=== PATIENT | female | born 2000 | race Asian ===

== ENCOUNTER 2022-09-06 14:06 | Emergency (ER) | payer BC, OTHER ==
[2022-09-06 14:28] LABS: Bilirubin Neg (Negative); Blood, Urine 10 (Negative); Clarity Sl. Cloudy (Clear); Glucose, Urine (Dipstick) Normal (Negative); Ketone, Urine Negative (Negative); Leukocyte 25 (Negative); Nitrite Negative (Negative); Protein, Urine (Dipstick) Negative (Neg-Trace); Urobilinogen Normal mg/dL (Less than 2)
[2022-09-06 14:41] LABS: RBC/HPF 0-3 HPF (0-3)
[2022-09-06 14:42] LABS: Bacteria/HPF 2+ HPF (None Seen); Mucous/LPF 1+ LPF (<2+)
[2022-09-06 14:43] LABS: ALT (SGPT) 14 U/L (8-55); AST (SGOT) 20 U/L (5-34); Albumin 3.8 g/dL (3.5-5.0); Alkaline Phosphatase 55 U/L (40-110); Anion Gap 12 mmol/L (10-20); BUN (Urea Nitrogen) 12 mg/dL (7.0-18.7); Bilirubin, Total 0.8 mg/dL (0.2-1.2); Calc. Creatinine Clearance 0 mL/min (70-130); Carbon Dioxide 24 mmol/L (22-29); Chloride 106 mmol/L (98-107); Estimated GFR 128; Globulin 2.9 g/dL (2.4-3.5); Glucose 110 mg/dL (70-105); Lipase 20 U/L (8-78); Potassium 3.9 mmol/L (3.5-5.1); Protein, Total 6.7 g/dL (6.0-8.3); Sodium 138 mmol/L (136-145)
[2022-09-06 14:46] LABS: #Eosinphils 0.1 10x3/uL (0.0-0.5); #Monocytes 0.6 10x3/uL (0.0-1.1); #Neutrophils 9.3 10x3/uL (1.5-8.4); %Basophils 0.2 % (0.0-2.0); %Lymphocytes 16.5 % (18.0-47.0); %Monocytes 4.5 % (0.0-10.0); %Neutrophils 76.6 % (40.0-75.0); Hemoglobin 8.6 g/dL (12.0-15.5); Mean Corpuscular HGB CONC 32.6 g/dL (32.0-36.0); Mean Corpuscular Hemoglobin 22.5 pg (27.0-33.0); Mean Corpuscular Volume 69.1 fl (81.6-98.3); Mean Platelet Volume 11.5 fl (7.4-10.4); Platelet Count 240 10x3/uL (150-450); RBC Distribution Width 18.6 % (11.5-14.5); Red Blood Cell (RBC) Count 3.82 10x6/uL (3.90-5.03); White Blood Cell (WBC) Count 12.1 10x3/uL (3.5-10.5)
[2022-09-06 15:50] LABS: Anisocytosis MODERATE=16-30 cells (100X) (0-5/hpf); Hypochromia SLIGHT = 6-15 cells (100X) (0-5/hpf); Microcytosis MODERATE=15-30 cells (100X) (0-5/hpf); Polychromasia SLIGHT = 2-3 cells (100X) (0-2/hpf)
[2022-09-06 15:52] LABS: Large Platelets SLIGHT; Ovalocytes SLIGHT = 2-5 cells (100X) (0-1/hpf); Platelet Morphology Comment Appears Adequate
[2022-09-06] MEDS ORDERED: Metoclopramide HCl 10 MG/2 ML VIAL ONE (17:30)
[2022-09-06 17:32] LABS: SARS-CoV-2 NAA Rapid Test Not Detected (NotDetected)
== END 2022-09-06 18:25 | disposition home or self-care (01) ==
LOC: CSHERS 14:06
DX: O26.892 Other specified pregnancy related conditions, second trimester (principal); R10.30 Lower abdominal pain, unspecified; O21.8 Other vomiting complicating pregnancy; O99.012 Anemia complicating pregnancy, second trimester; D64.9 Anemia, unspecified; Z3A.18 18 weeks gestation of pregnancy; Z20.822 Contact with and (suspected) exposure to COVID-19
CPT/HCPCS: 36415; 76856; 80053; 81003; 81015; 83690; 85025; 86900; 86901; 96374; J2765

== ENCOUNTER 2022-10-27 15:27 | Outpatient (CLI) | payer BC, OTHER | END 2022-10-27 15:28 | disposition home or self-care (01) | LOC: CSHULT 15:27 | PROVIDERS: ATTEND Advanced Practice Midwife | DX: Z34.92 Encounter for supervision of normal pregnancy, unspecified, second trimester (principal); Z3A.26 26 weeks gestation of pregnancy | CPT/HCPCS: 76805 ==

== ENCOUNTER 2023-01-28 00:02 | Inpatient (IN) | payer BC, OTHER ==
[2023-01-28 00:30] VITALS: BMI 43.4
[2023-01-28 00:56] LABS: Fetal Membranes Rupture RUPTURE DETECTED (No Rupture)
[2023-01-28] MEDS ORDERED: NS w/ Oxytocin 30 units 500 ML IV SCH (02:15)
[2023-01-28] MEDS ORDERED: HYDROcodone/Acetaminophen 5/325 mg Tablet PO PRN ×2 (02:15)
[2023-01-28] MEDS ORDERED: Ibuprofen 800 MG TAB PO PRN (02:15)
[2023-01-28] MEDS ORDERED: Lidocaine 1% (PF) 30 ML VIAL SC PRN (02:15)
[2023-01-28] MEDS ORDERED: Butorphanol Tartrate 1 MG/ML VIAL SLOW IVP PRN (02:15)
[2023-01-28] MEDS ORDERED: Lactated Ringer's 1,000 ML IV SCH (02:15)
[2023-01-28] MEDS ORDERED: Zolpidem Tartrate 5 MG TAB PO PRN (02:15)
[2023-01-28] MEDS ORDERED: Acetaminophen 500 MG TAB PO PRN (02:15)
[2023-01-28] MEDS ORDERED: Misoprostol 200 MCG TAB RC PRN (02:15)
[2023-01-28] MEDS ORDERED: Ondansetron PF 4 MG/2 ML Vial IVP PRN ×3 (02:15→19:55)
[2023-01-28] MEDS ORDERED: NS w/ Oxytocin 30 units 500 ML IVPB SCH (02:15)
[2023-01-28] MEDS ORDERED: hydrALAZINE 20 MG/ML VIAL SLOW IVP PRN (02:15)
[2023-01-28] MEDS ORDERED: Promethazine HCl 25 MG/ML VIAL IM PRN ×2 (02:15→09:15)
[2023-01-28] MEDS ORDERED: Diphenoxylate HCl/Atropine Tablet PO PRN ×2 (02:15)
[2023-01-28] MEDS ORDERED: Methylergonovine 0.2 MG/ML VIAL IM PRN (02:15)
[2023-01-28] MEDS ORDERED: Fleet Enema 133 ML BOT PR ONE (02:15)
[2023-01-28] MEDS ORDERED: Penicillin G Potassium 5 MILL.UNITS in Sodium Chloride 0.9% 100 ML IVPB SCH (02:15)
[2023-01-28] MEDS ORDERED: Carboprost 250 MCG/ML AMP IM PRN (02:15)
[2023-01-28 03:20] LABS: Mean Corpuscular HGB CONC 31.3 g/dL (32.0-36.0); Mean Corpuscular Hemoglobin 23.3 pg (27.0-33.0); Mean Corpuscular Volume 74.4 fl (81.6-98.3); Mean Platelet Volume 12.5 fl (7.4-10.4); Platelet Count 249 10x3/uL (150-450); RBC Distribution Width 16.4 % (11.5-14.5); Red Blood Cell (RBC) Count 3.87 10x6/uL (3.90-5.03); White Blood Cell (WBC) Count 15.4 10x3/uL (3.5-10.5)
[2023-01-28 03:53] LABS: HBSAg Index 0.13 S/CO (0-0.99); Hep B Surf Ag - L&D Non-Reactive S/CO (NonReactive); Syphilis Antibody Nonreactive (Nonreactive); Syphilis Antibody Index 0.06 S/CO (<1.00 Non-Reactive)
[2023-01-28] MEDS: Penicillin G 2.5 MILL.units 2.5 MILL.UNITS in Premix Bag 1 BAG IVPB SCH ×4 (07:23→20:06)
[2023-01-28] MEDS ORDERED: Bupivacaine/Epinephrine 0.25% 30 ML VIAL ONE (08:00)
[2023-01-28] MEDS ORDERED: Fentanyl 2 mcg/Bup 0.1% Cadd 100 ML ONE (08:23)
[2023-01-28] MEDS ORDERED: Docusate 100 MG CAP PO SCH (09:00)
[2023-01-28] MEDS ORDERED: ePHEDrine Sulfate 50 MG/10 ML VIAL SLOW IVP PRN (09:15)
[2023-01-28] MEDS ORDERED: Communication Order-Pharmacy FS SCH (09:15)
[2023-01-28] MEDS ORDERED: Fentanyl 2 mcg/Bupivacaine 0.1% Cassette 100 ML EPIDURAL SCH (09:15)
[2023-01-28] MEDS ORDERED: Naloxone HCl 0.4 mg/ml Vial IVP PRN ×2 (09:15)
[2023-01-28] MEDS ORDERED: Moisturizing Cream (Eucerin) 113 GM JAR TOP PRN (09:15)
[2023-01-28] MEDS ORDERED: diphenhydrAMINE 50 MG/ML VIAL IVP PRN (09:15)
[2023-01-28] MEDS ORDERED: Acetaminophen 325 MG TAB PO PRN (09:15)
[2023-01-28] MEDS ORDERED: Lactated Ringer's 500 ML IV PRN (09:15)
[2023-01-28] MEDS ORDERED: Fentanyl 100 MCG/2 ML VIAL ONE ×3 (16:33→23:59)
[2023-01-28] MEDS: Ampicillin 2 GM in Sodium Chloride 0.9% 100 ML IVPB SCH (22:59)
[2023-01-28] MEDS ORDERED: CEFAZOLIN 2 GM VIAL ONE (23:55)
[2023-01-28] MEDS ORDERED: Morphine PF 10 MG/10 ML VIAL ONE (23:59)
[2023-01-29] MEDS ORDERED: Ketorolac Tromethamine 30 MG/ML VIAL ONE
[2023-01-29] MEDS ORDERED: Phenylephrine 40 MG/NS 250 ML 250 ML ONE
[2023-01-29] MEDS ORDERED: Lidocaine 2% MPF 10 ML AMP (For Epidural Use) ONE
[2023-01-29] MEDS ORDERED: Oxytocin 10 UNITS/ML VIAL ONE ×2 (00:12→00:44)
[2023-01-29] MEDS ORDERED: Metoclopramide HCl 10 MG/2 ML VIAL ONE (00:12)
[2023-01-29] MEDS ORDERED: Dexamethasone 4 mg/ml Vial ONE (00:12)
[2023-01-29] MEDS ORDERED: Famotidine/PF 20 mg/2ml Vial ONE (00:13)
[2023-01-29] MEDS ORDERED: Tranexamic Acid 1,000 MG/10 ML VIAL ONE (00:28)
[2023-01-29] MEDS ORDERED: diphenhydrAMINE 50 MG/ML VIAL IVP PRN (01:16)
[2023-01-29] MEDS ORDERED: Meperidine HCl/PF 25 MG/ML VIAL SLOW IVP PRN (01:16)
[2023-01-29] MEDS ORDERED: Moisturizing Cream (Eucerin) 113 GM JAR TOP PRN (01:16)
[2023-01-29] MEDS ORDERED: Ketorolac Tromethamine 30 MG/ML VIAL IVP PRN (01:16)
[2023-01-29] MEDS ORDERED: Promethazine HCl 25 MG/ML VIAL IM PRN ×2 (01:16→04:18)
[2023-01-29] MEDS ORDERED: Naloxone HCl 0.4 mg/ml Vial IV PRN (01:16)
[2023-01-29] MEDS ORDERED: Naloxone HCl 0.4 mg/ml Vial IVP PRN ×2 (01:16)
[2023-01-29] MEDS ORDERED: Fentanyl 100 MCG/2 ML VIAL SLOW IVP PRN (01:16)
[2023-01-29] MEDS ORDERED: Promethazine HCl 25 MG SUPP PR PRN (01:16)
[2023-01-29] MEDS ORDERED: Ondansetron HCl/PF 4 MG/2 ML Vial IVP PRN (01:16)
[2023-01-29] MEDS ORDERED: Ondansetron PF 4 MG/2 ML Vial IVP PRN ×2 (01:16→04:18)
[2023-01-29] MEDS ORDERED: Ketorolac Tromethamine 30 MG/ML VIAL IVP SCH (01:30)
[2023-01-29] MEDS ORDERED: Communication Order-Pharmacy FS SCH (01:30)
[2023-01-29] MEDS ORDERED: Bisacodyl 10 MG SUPP PR PRN (04:18)
[2023-01-29] MEDS ORDERED: Simethicone Chewable 80 MG TAB PO PRN (04:18)
[2023-01-29] MEDS ORDERED: Lanolin Ointment 7 GM TUBE TOP PRN (04:18)
[2023-01-29] MEDS ORDERED: hydrALAZINE 20 MG/ML VIAL SLOW IVP PRN (04:18)
[2023-01-29] MEDS ORDERED: Boostrix 0.5 ML (Tdap) VIAL (>/=7 yrs of age) IM ONE (04:18)
[2023-01-29] MEDS ORDERED: diphenhydrAMINE 25 MG CAP PO PRN (04:18)
[2023-01-29] MEDS: Ampicillin 2 GM in Sodium Chloride 0.9% 100 ML IVPB SCH ×3 (05:20→18:18)
[2023-01-29 06:55] LABS: Hemoglobin 9.2 g/dL (12.0-15.5); Mean Corpuscular HGB CONC 31.7 g/dL (32.0-36.0); Mean Corpuscular Hemoglobin 24.3 pg (27.0-33.0); Mean Corpuscular Volume 76.7 fl (81.6-98.3); Mean Platelet Volume 10.7 fl (7.4-10.4); Platelet Count 205 10x3/uL (150-450); Red Blood Cell (RBC) Count 3.78 10x6/uL (3.90-5.03); White Blood Cell (WBC) Count 22.9 10x3/uL (3.5-10.5)
[2023-01-29] MEDS: Ketorolac Tromethamine 30 MG/ML VIAL IVP SCH ×3 (08:10→20:57)
[2023-01-29] MEDS ORDERED: Sodium Chloride 0.9% 100 ML ONE (12:28)
[2023-01-29] MEDS: Docusate 100 MG CAP PO SCH ×2 (12:35→20:58)
[2023-01-29] MEDS: Prenatal Vitamin 1 TAB PO SCH (12:35)
[2023-01-29] MEDS: Ferrous Sulfate 325 MG TAB PO SCH ×2 (12:35→20:58)
[2023-01-29] MEDS: HYDROcodone/Acetaminophen 5/325 mg Tablet PO PRN ×2 (12:54→18:26)
[2023-01-29] MEDS ORDERED: Sertraline 100 MG TAB PO SCH (13:00)
[2023-01-29] MEDS ORDERED: HYDROcodone/Acetaminophen 5/325 mg Tablet PO PRN (13:30)
[2023-01-29] MEDS ORDERED: Zolpidem Tartrate 5 MG TAB PO PRN (13:30)
[2023-01-30] MEDS: Ampicillin 2 GM in Sodium Chloride 0.9% 100 ML IVPB SCH ×3 (00:38→11:37)
[2023-01-30] MEDS: HYDROcodone/Acetaminophen 5/325 mg Tablet PO PRN ×5 (01:35→21:11)
[2023-01-30] MEDS: Ketorolac Tromethamine 30 MG/ML VIAL IVP SCH (01:40)
[2023-01-30] MEDS: Prenatal Vitamin 1 TAB PO SCH (09:18)
[2023-01-30] MEDS: Docusate 100 MG CAP PO SCH ×2 (09:18→21:06)
[2023-01-30] MEDS: Sertraline 100 MG TAB PO SCH (09:18)
[2023-01-30] MEDS: Ibuprofen 800 MG TAB PO SCH ×2 (09:18→16:15)
[2023-01-30] MEDS: Ferrous Sulfate 325 MG TAB PO SCH ×2 (09:20→21:06)
[2023-01-31] MEDS: Ibuprofen 800 MG TAB PO SCH ×2 (00:10→08:33)
[2023-01-31] MEDS: HYDROcodone/Acetaminophen 5/325 mg Tablet PO PRN (06:37)
[2023-01-31] MEDS: Docusate 100 MG CAP PO SCH (08:32)
[2023-01-31] MEDS: Ferrous Sulfate 325 MG TAB PO SCH (08:33)
[2023-01-31] MEDS: Sertraline 100 MG TAB PO SCH (08:34)
[2023-01-31 11:07] VITALS: BP 120/59; TEMP 99.2
== END 2023-01-31 17:10 | disposition home or self-care (01) | DRG 787 ==
LOC: CSHLD/OP 00:02 → CSHLD 01:59 → CSHPED 01-29 10:19
PROVIDERS: ADMIT Family Medicine; ATTEND Family Medicine
PROC: 10D00Z1 Extraction of Products of Conception, Low, Open Approach (ICD-10-PCS; principal; 2023-01-29)
PROC: 10907ZC Drainage of Amniotic Fluid, Therapeutic from Products of Conception, Via Natural or Artificial Opening (ICD-10-PCS; 2023-01-29)
PROC: 30233N1 Transfusion of Nonautologous Red Blood Cells into Peripheral Vein, Percutaneous Approach (ICD-10-PCS; 2023-01-29)
PROC: 10H07YZ Insertion of Other Device into Products of Conception, Via Natural or Artificial Opening (ICD-10-PCS; 2023-01-29)
DX: O42.02 Full-term premature rupture of membranes, onset of labor within 24 hours of rupture (principal); O75.2 Pyrexia during labor, not elsewhere classified; O99.824 Streptococcus B carrier state complicating childbirth; O77.0 Labor and delivery complicated by meconium in amniotic fluid; O62.1 Secondary uterine inertia; Z3A.38 38 weeks gestation of pregnancy; Z37.0 Single live birth; Z79.899 Other long term (current) drug therapy
CPT/HCPCS: 36415; 36430; 51702; 84112; 85027; 86780; 86850; 86900; 86901; 87340; 88307; 99285; J0290; J1100; J1580; J1885; J2274; J2405; J2540; J2590; J2765; J3010; J3490; P9016